=== PATIENT | male | born 2000 | race Caucasian/White ===

== ENCOUNTER 2020-07-05 11:02 | Emergency (ER) | payer MEDICAID ==
[~2020-07-05] VITALS: Ht 175.3 cm; Wt 90.0 kg
[~2020-07-05 11:02] MED LIST: LIDOcaine 1% W/epiNEPHrine 1:100,000 20ml vial ONE
[2020-07-05 11:29] VITALS: BP 133/88
[2020-07-05] MEDS ORDERED: SULF1TAB49 PO (12:34)
[2020-07-05] MEDS ORDERED: CEPH-585 PO (12:34)
== END 2020-07-05 12:39 | disposition home or self-care (01) ==
LOC: ER 11:02
DX: L02.416 Cutaneous abscess of left lower limb (principal); K21.9 Gastro-esophageal reflux disease without esophagitis; F12.90 Cannabis use, unspecified, uncomplicated; Z98.890 Other specified postprocedural states; Z72.89 Other problems related to lifestyle; Z79.2 Long term (current) use of antibiotics
CPT/HCPCS: 10060; 99283